=== PATIENT | female | born 1960 | race Caucasian/White ===

== ENCOUNTER 2019-04-02 02:36 | Inpatient (IN) | payer OTHER ==
--- NOTE | 2019-04-02 02:38 | PDOC ---
History of Present Illness - General Chief Complaint: Pain, Acute Stated Complaint: ABD PAIN Time Seen by Provider: 04/02/19 02:37 - History of Present Illness Initial Comments: 04/02/19 02:58 This 58-year-old woman with a history of SVT (no episodes in greater than 1 year ) presents with a few hour history of abdominal pain. Patient was awakened from sleep with pain in the epigastric area, sharp and cramping in nature radiating to bilateral flanks and to both lower quadrants. Pain associated with nausea; patient had 3 episodes of vomiting prior to presentation (no blood/ coffee grounds/bile). She had sensation of tenesmus but no gas/BM passed at home. No dysuria/hematuria/urinary frequency or urgency. No history of PUD/ gallstones/renal stone. She has history of hysterectomy but no other surgical procedures. No fever/chills. After vomiting at home, nausea has subsided. Last meal early last evening; last bowel movement sometime in the last 24 hours and was normal. No known drug allergies Medications as noted below (patient took extra metoprolol this evening because of tension headache and elevated BP(170/90) on home monitor) PMH as noted above; patient has no history of hypertension, metoprolol prescribed for SVT control PSH: hysterectomy Non smoker Alcohol use 2-3 /week (few beers); no other recreational drug use Past History - Past Medical History Allergies/Adverse Reactions: Allergies Allergy/AdvReac Type Severity Reaction Status Date / Time No Known Drug Allergies Allergy Verified 04/02/19 16:13 Home Medications: Ambulatory Orders Multivitamin [Multivitamins] 1 each PO DAILY tablet 08/10/13 Estradiol [Estradiol Transdermal Patch] 1 each TD WEEKLY 05/02/15 Metoprolol Succinate 25 mg PO DAILY 04/02/19 Progesterone, Micronized [Progesterone] 25 mg PO DAILY 04/02/19 Review of Systems - Review of Systems Able to Perform ROS?: Yes Comments:: 12 point review of systems is negative except for what is noted in the history of present illness *Physical Exam - Physical Exam Comments: GENERAL: Adult female, alert and oriented x3, in mild distress secondary to abdominal pain HEAD: Normal with no signs of trauma. EYES: PERRLA, EOMI, sclera anicteric, conjunctiva clear. ENT: Ears normal, nares patent, oropharynx clear without exudates. Dry mucous membranes. NECK: Normal range of motion, supple without lymphadenopathy, JVD, or masses. LUNGS: Breath sounds equal, clear to auscultation bilaterally. No wheezes, and no crackles. HEART:Regular rate and rhythm, normal S1 and S2 without murmur, rub or gallop. ABDOMEN:.normal bowel sounds; extensive voluntary guarding; mild generalized tenderness, no rebound or masses EXTREMITIES: Normal range of motion, no edema. No clubbing or cyanosis. No erythema, or tenderness. NEUROLOGICAL: Cranial nerves II through XII grossly intact. Normal speech. No focal neurological deficits. Twelve-lead electrocardiogram is performed interpreted by me: Normal sinus rhythm at 62 bpm; axis, intervals and waveforms are all normal. No evidence of acute ST or T wave abnormalities. No evidence of acute cardiac arrhythmia ED Treatment Course - LABORATORY CBC & Chemistry Diagram: 04/02/19 03:05 04/02/19 03:05 Medical Decision Making - Medical Decision Making 04/02/19 03:59 Abdominal/pelvic CT with IV and oral contrast plan to evaluate etiology of progressive abdominal pain. Patient given Toradol 30 mg IV and 1 L normal saline IV hydration started. Patient vomited oral contrast (after drinking most of it). 04/02/19 05:56 CT of abdomen and pelvis with intravenous contrast interpreted by Imaging demolition worker :revealed multiple dilated loops of small bowel with 2 transition points at midabdominal and left lower quadrant of the abdomen. There is perienteric fat stranding with edema and mesenteric vascular congestion. Findings suggest a high-grade, closed-loop small bowel obstruction. No free intraperitoneal air or mass is seen. Results discussed with the patient and her . There is no general surgeon that they have seen in the past. Case discussed with general surgeon on-call, Dr. Truong. Dr. Truong requests that patient be admitted to [facility], where OR is available today. The patient and her are informed of plan and they agree to it. [facility] hospitalist service will be contacted NG tube inserted 04/02/19 06:27 SHERIE Drake, [facility] hospitalist service contacted and case discussed with him. Patient will be admitted to [facility] bed, Dr. Buchanan admitting 04/02/19 07:28 Portable chest x-ray performed: No evidence of infiltrate/effusion masses or other acute abnormality. Cardiac monitoring advised device seen superimposed on cardiac silhouette. Discharge - Discharge Information Problems reviewed: Yes Clinical Impression/Diagnosis: Small bowel obstruction Condition: Guarded - Admission Yes - Follow up/Referral - Patient Discharge Instructions - Post Discharge Activity
[2019-04-02 02:47] VITALS: BMI 24.3
[2019-04-02] MEDS ORDERED: KETOROLAC TROMETHAMINE 30 MG/1 ML VIAL IVPUSH ONE (02:57)
[2019-04-02] MEDS ORDERED: SODIUM CHLORIDE 1,000 ML IV STA ×2 (02:57→06:19)
[2019-04-02] MEDS ORDERED: KETOROLAC TROMETHAMINE 30 MG/1 ML VIAL ONE (02:59)
[2019-04-02 03:42] LABS: BASO % 0.6 % (0-2.0); EOS % 1.7 % (0-4.5); HEMATOCRIT 42.5 % (32.4-45.2); HEMOGLOBIN 14.4 GM/dL (10.7-15.3); LYMPH % 26.7 % (8-40); MCH 32.7 pg (25.7-33.7); MCHC 33.9 g/dl (32.0-36.0); MEAN CELL VOLUME 96.5 fl (80-96); MONO % 6.8 % (3.8-10.2); NEUT % 64.2 % (42.8-82.8); PLATELET COUNT 452 K/MM3 (134-434); RBC 4.41 M/mm3 (3.60-5.2); RDW 12.6 % (11.6-15.6); WHITE BLOOD COUNT 10.3 K/mm3 (4.0-10.0)
[2019-04-02] MEDS ORDERED: morphine CARPU-JECT 2 MG/1 ML DISP.SYRIN IVPUSH ONE ×2 (03:50→05:06)
[2019-04-02 03:54] LABS: INR 1.01 (0.83-1.09); PROTHROMBIN TIME (PATIENT) 11.9 SEC (9.7-13.0)
[2019-04-02] MEDS ORDERED: morphine SULFATE 4 MG/ML VIAL ONE (03:57)
[2019-04-02 04:04] LABS: ALBUMIN 4.1 g/dl (3.4-5.0); BILIRUBIN,TOTAL 0.5 mg/dL (0.2-1); CALCIUM 9.5 mg/dL (8.5-10.1); CREATININE 0.9 mg/dL (0.55-1.3); POTASSIUM 4.1 mmol/L (3.5-5.1); TOT PROT 6.9 g/dl (6.4-8.2)
[2019-04-02] MEDS ORDERED: ONDANSETRON 4 MG/2 ML VIAL IVPUSH ONE (05:05)
[2019-04-02] MEDS ORDERED: ONDANSETRON 4 MG/2 ML VIAL ONE (05:09)
[2019-04-02] MEDS ORDERED: HYDROmorphone HCL CARPU-JECT 2 MG/1 ML DISP.SYRIN IVPUSH ONE (06:50)
[2019-04-02] MEDS ORDERED: HYDROmorphone HCl 2 MG/ML VIAL ONE (06:55)
[2019-04-02 08:38] LABS: URINE APPEARANCE CLEAR; URINE BILIRUBIN NEGATIVE (NEGATIVE); URINE COLOR YELLOW; URINE GLUCOSE (UA) NEGATIVE (NEGATIVE); URINE KETONE NEGATIVE (NEGATIVE)
[2019-04-02 08:39] LABS: URINE LEUK ESTERASE NEGATIVE (NEGATIVE); URINE NITRITE NEGATIVE (NEGATIVE); URINE PROTEIN NEGATIVE (NEGATIVE); URINE UROBILINOGEN 0.2 (0.2-1.0)
[2019-04-02 08:44] LABS: URINE RBC 0-2 /hpf (0-4)
[2019-04-02] MEDS: LACTATED RINGERS SOLUTION 1,000 ML IV SCH (11:57)
--- NOTE | 2019-04-02 12:01 | HP ---
Admitting History and Physical - Admission Chief Complaint: Abdominal pain and vomiting History of Present Illness: 58F with history of anxiety and SVT on metoprolol presents to the hospital at [place] after waking up in the middle of the night with abdominal pain. The patient states she felt nauseous and ended up vomiting the night before's dinner. She had a CT scan which showed SBO with 2 transition points. Patient was seen by surgery and per patient and RN (note pending) surgery would like to medically manage with an NG tube for now. She denies fever chills chest pain or SOB. She denies lightheadedness dizziness diarrhea or constipation. Her last BM was 2 days ago and last flatus was yesterday morning. She has a past surgical history of a hysterectomy. History Source: Patient, Medical Record Limitations to Obtaining History: No Limitations - Past Medical History Cardiovascular: Yes: Other (SVT) ...: No Psych: Yes: Anxiety - Past Surgical History Past Surgical History: Yes: Hysterectomy (Robot assisted laparoscopic) Additional Past Surgical History: Multiple D&Cs for uterine bleeding - Smoking History Smoking history: Never smoked Home Medications - Allergies Allergies/Adverse Reactions: Allergies Allergy/AdvReac Type Severity Reaction Status Date / Time milk Allergy Intolerance Verified 04/02/19 10:47 - Home Medications Home Medications: Ambulatory Orders Multivitamin [Multivitamins] 1 each PO DAILY tablet 08/10/13 Estradiol [Estradiol Transdermal Patch] 1 each TD WEEKLY 05/02/15 Metoprolol Succinate 25 mg PO DAILY 04/02/19 Progesterone, Micronized [Progesterone] 25 mg PO DAILY 04/02/19 Family Medical History Family History: Denies Review of Systems - Review of Systems Constitutional: reports: Loss of Appetite Eyes: reports: No Symptoms HENT: reports: No Symptoms Neck: reports: No Symptoms Cardiovascular: reports: No Symptoms Respiratory: reports: No Symptoms Gastrointestinal: reports: Abdominal Pain, Nausea, Vomiting, Other (no BM no flatus) Genitourinary: reports: No Symptoms Musculoskeletal: reports: No Symptoms Neurological: reports: No Symptoms Endocrine: reports: No Symptoms Hematology/Lymphatic: reports: No Symptoms Psychiatric: reports: No Symptoms Physical Examination Vital Signs: Vital Signs Temperature 98.4 F 04/02/19 11:14 Pulse Rate 86 04/02/19 11:14 Respiratory Rate 17 04/02/19 11:14 Blood Pressure 166/92 04/02/19 11:14 O2 Sat by Pulse Oximetry (%) 99 04/02/19 11:14 Constitutional: Yes: Well Nourished, No Distress, Calm Eyes: Yes: Conjunctiva Clear HENT: Yes: Atraumatic, Normocephalic Neck: Yes: Supple, Trachea Midline Cardiovascular: Yes: Regular Rate and Rhythm, S1, S2. No: Murmur Respiratory: Yes: WNL, Regular, CTA Bilaterally Gastrointestinal: Yes: Soft, Tenderness (bilateral lower quadrants), Other (no bowel sounds appreciated after 3 minutes of listening for bowel sounds) Musculoskeletal: Yes: WNL Extremities: Yes: WNL Edema: No Neurological: Yes: Alert, Oriented Psychiatric: Yes: Alert, Oriented Labs: CBC, BMP 04/02/19 03:05 04/02/19 03:05 Imaging - Results X-ray: Report Reviewed, Image Reviewed Cat Scan: Report Reviewed, Image Reviewed Assessment/Plan This is a 58F with history of anxiety and SVT who presents with nausea and vomiting in the setting of abdominal pain found to have small bowel obstruction. Small bowel obstruction Admit to inpatient services NPO IVF Surgery consult-medical management for now pain control monitor for bowel function history of SVT denies palpitations [id number] IVPB q6h with hold parameters Patient discharged by service crew supervisor for not having any episodes for 1 year Anxiety: Takes ativan 0.5mg po daily PRN states a 30 day supply lasts her about 90 days usually will start 0.5mg IV PRN FEN: LR @ 100ml/hr no electrolyte issues-trend lytes while patient is NPO NPO for now PPx: DVT PPx with HSQ GI PPx with IV protonix OOB to chair and ambulate as tolerated Visit type - Emergency Visit Emergency Visit: Yes ED Registration Date: 04/02/19 Care time: The patient presented to the Emergency Department on the above date and was hospitalized for further evaluation of their emergent condition. - New Patient This patient is new to me today: Yes Date on this admission: 04/02/19 - Critical Care Critical Care patient: No
[2019-04-02] MEDS ORDERED: LORazepam 2 MG/ML SDV VIAL IVPUSH PRN (12:03)
[2019-04-02] MEDS: METOPROLOL TARTRATE 5 MG/5 ML VIAL IVPB SCH ×3 (12:06→22:48)
[2019-04-02] MEDS: PANTOPRAZOLE SODIUM 40 MG VIAL IVPUSH SCH (12:06)
[2019-04-02] MEDS: MORPHINE SULFATE 2 MG/ML VIAL IVPUSH PRN ×2 (13:02→17:48)
[2019-04-02] MEDS ORDERED: BENZOCAINE/MENTH/CETYLPYRD CL 1 EACH LOZENGE MM PRN (15:34)
[2019-04-02] MEDS: HEPARIN NA (PORCINE) 5,000 UNITS/ML 1ML VIAL SQ SCH ×2 (15:55→22:25)
--- NOTE | 2019-04-02 20:13 | EKG ---
Test Reason : Blood Pressure : / mmHG Vent. Rate : 062 BPM Atrial Rate : 062 BPM P-R Int : 156 ms QRS Dur : 090 ms QT Int : 422 ms P-R-T Axes : 048 -01 -19 degrees QTc Int : 428 ms NORMAL SINUS RHYTHM NONSPECIFIC ST ABNORMALITY ABNORMAL ECG NO PREVIOUS ECGS AVAILABLE Confirmed by MD JANAE, DONNIE ([id number]) on 04/02/2019 8:12:56 PM Referred By: MD MENDEZ Confirmed By:DONNIE CARDOSO MD
[2019-04-02] MEDS: morphine SULFATE 4 MG/ML VIAL IVPUSH PRN (22:24)
[2019-04-03] MEDS: morphine SULFATE 4 MG/ML VIAL IVPUSH PRN (03:25)
[2019-04-03] MEDS: LACTATED RINGERS SOLUTION 1,000 ML IV SCH ×2 (03:30→15:23)
[2019-04-03] MEDS: HEPARIN NA (PORCINE) 5,000 UNITS/ML 1ML VIAL SQ SCH ×3 (05:41→22:38)
[2019-04-03] MEDS: METOPROLOL TARTRATE 5 MG/5 ML VIAL IVPB SCH ×4 (05:50→22:38)
[2019-04-03 07:35] LABS: BASO % 0.3 % (0-2.0); EOS % 0.3 % (0-4.5); HEMATOCRIT 39.9 % (32.4-45.2); HEMOGLOBIN 13.8 GM/dL (10.7-15.3); LYMPH % 14.8 % (8-40); MCH 33.3 pg (25.7-33.7); MCHC 34.5 g/dl (32.0-36.0); MEAN CELL VOLUME 96.4 fl (80-96); MEAN PLT VOLUME 6.9 fl (7.5-11.1); MONO % 5.9 % (3.8-10.2); NEUT % 78.7 % (42.8-82.8); PLATELET COUNT 461 K/MM3 (134-434); RBC 4.14 M/mm3 (3.60-5.2); RDW 12.9 % (11.6-15.6); WHITE BLOOD COUNT 11.8 K/mm3 (4.0-10.0)
[2019-04-03 07:52] LABS: ALBUMIN 3.7 g/dl (3.4-5.0); BILIRUBIN,TOTAL 0.8 mg/dL (0.2-1); BLOOD UREA NITROGEN 11.3 mg/dL (7-18); CALCIUM 9.1 mg/dL (8.5-10.1); CREATININE 0.9 mg/dL (0.55-1.3); MAGNESIUM 2.1 mg/dL (1.8-2.4); PHOSPHOROUS 3.4 mg/dL (2.5-4.9); TOT PROT 6.3 g/dl (6.4-8.2)
[2019-04-03] MEDS: PANTOPRAZOLE SODIUM 40 MG VIAL IVPUSH SCH (10:28)
[2019-04-03] MEDS: MORPHINE SULFATE 2 MG/ML VIAL IVPUSH PRN ×2 (10:31→22:47)
[2019-04-03] MEDS: ONDANSETRON 4 MG/2 ML VIAL IVPUSH PRN ×2 (10:47→22:46)
--- NOTE | 2019-04-03 10:51 | PN ---
Physical Exam: SUBJECTIVE: Patient seen and examined. She reports pain relief with increased dose of morphine. Minimum pain present in lower abdomen with movement only. She denies fever, chills, chest pain, shortness of breath, n/v. No flatus. OBJECTIVE: Vital Signs Period Temp Pulse Resp BP Sys/Castillo Pulse Ox Last 24 Hr 98 F-98.4 F 68-90 17-18 139-166/67-100 99-99 GENERAL: The patient is awake, alert, and fully oriented, in no acute distress. HEAD: Normal with no signs of trauma. EYES: PERRL, extraocular movements intact ENT: Ears normal, nares patent, moist mucous membranes. NECK: Trachea midline, full range of motion LUNGS: Breath sounds equal, clear to auscultation bilaterally HEART: Regular rate and rhythm, no murmur ABDOMEN: Soft, non-distended, tender to palpation in lower quadrants, normoactive bowel sounds in all 4 quadrants EXTREMITIES: Pulses, warm, well-perfused, no edema. NEUROLOGICAL: Cranial nerves II through XII grossly intact. Normal speech. PSYCH: Normal mood, normal affect. SKIN: Warm, dry, normal turgor Laboratory Results - last 24 hr 04/03/19 04/03/19 06:30 06:30 WBC 11.8 H RBC 4.14 Hgb 13.8 Hct 39.9 MCV 96.4 H MCH 33.3 MCHC 34.5 RDW 12.9 Plt Count 461 H MPV 6.9 L Absolute Neuts (auto) 9.3 H Neutrophils % 78.7 D Lymphocytes % 14.8 D Monocytes % 5.9 Eosinophils % 0.3 D Basophils % 0.3 Nucleated RBC % 0 Sodium 140 Potassium 4.0 Chloride 103 Carbon Dioxide 28 Anion Gap 9 BUN 11.3 Creatinine 0.9 Est GFR (CKD-EPI)AfAm 81.11 Est GFR (CKD-EPI)NonAf 69.99 Random Glucose 102 Calcium 9.1 Phosphorus 3.4 Magnesium 2.1 Total Bilirubin 0.8 AST 16 ALT 22 Alkaline Phosphatase 64 Total Protein 6.3 L Albumin 3.7 Active Medications Generic Name Dose Route Start Last Admin Trade Name Freq PRN Reason Stop Dose Admin Benzocaine/Menthol 1 each 04/02/19 15:34 Cepacol Lozenge - MM PRN PRN SORE THROAT Heparin Sodium (Porcine) 5,000 unit 04/02/19 14:00 04/03/19 05:41 Heparin - SQ 5,000 unit TID LULU Administration Lactated Ringer's 1,000 mls @ 100 mls/hr 04/02/19 11:30 04/03/19 03:30 Lactated Ringers Solution IV 100 mls/hr ASDIR LULU Administration Lorazepam 0.5 mg 04/02/19 12:03 Ativan Injection - IVPUSH BID PRN ANXIETY Metoprolol Tartrate 5 mg 04/02/19 11:30 04/03/19 05:50 Lopressor Injection - IVPB 5 mg Q6H LULU Administration Morphine Sulfate 2 mg 04/02/19 11:19 04/03/19 10:31 Morphine Sulfate IVPUSH 2 mg Q4H PRN Administration PAIN LEVEL 4 - 6 Morphine Sulfate 4 mg 04/02/19 11:19 04/03/19 03:25 Morphine Sulfate IVPUSH 4 mg Q4H PRN Administration PAIN LEVEL 6-10 Ondansetron HCl 4 mg 04/02/19 11:25 Zofran Injection IVPUSH Q6H PRN NAUSEA Pantoprazole Sodium 40 mg 04/02/19 11:30 04/03/19 10:28 Protonix Iv IVPUSH 40 mg DAILY LULU Administration ASSESSMENT/PLAN: Ms. White is a 58y/o female with anxiety and SVT who presents with sudden onset abdominal pain. Pt was found to have SBO. Hx of hysterectomy 4 years ago. #SBO CT showed lower abdominal/pelvic SBO. Mild leukocytosis. Afebrile and hemodynamically stable. NG tube placed yesterday. No flatus yet but pt has + bowel sounds in all quadrants. -continue conservative therapy of NG tube low suction -surgery following- can monitor but will need exploration if not resolved in 5 days. -NPO -LR 100mL/hr -morphine PRN -Zofran PRN -cepacol for throat pain #hepatic lesions 2 1.0cm low-attenuation lesions, possibly cysts present on CT. Normal liver enzymes. -f/u out pt #SVT Well-controlled -metoprolol 5mg Q6H IVPB #anxiety Well-controlled -Ativan PRN DVT Ppx heparin GI Ppx pantoprazole FEN LR 100mL/hr monitor labs NPO Dispo medical management for resolution of SBO Visit type - Emergency Visit Emergency Visit: Yes ED Registration Date: 04/02/19 Care time: The patient presented to the Emergency Department on the above date and was hospitalized for further evaluation of their emergent condition. - New Patient This patient is new to me today: Yes Date on this admission: 04/03/19 - Critical Care Critical Care patient: No - Discharge Referral Referred to [facility] Med P.C.: No ATTENDING PHYSICIAN STATEMENT I saw and evaluated the patient. I reviewed the resident's note and discussed the case with the resident. I agree with the resident's findings and plan as documented. SUBJECTIVE: OBJECTIVE: ASSESSMENT AND PLAN:
--- NOTE | 2019-04-03 11:05 | PN ---
Teaching Attending Note Name of Resident: Rhonda Mitchell ATTENDING PHYSICIAN STATEMENT I saw and evaluated the patient. I reviewed the resident's note and discussed the case with the resident. I agree with the resident's findings and plan as documented. SUBJECTIVE: Patient seen and examined at bedside patient keeps taking NG tube off suction because the NG tube is hurting her throat. I explained to the patient the NG tube is not doing its job when it is off suction. Been off suction since last night. Patient more distended today and vomited. NG tube not on suction when she vomited. Patient becoming very difficult to staff and nursing and stated to me "you done know what it feels like to have one of these in. Maybe you should try putting one in yourself to see how it feels". OBJECTIVE: Vitals reviewed NAD AAOx3 RRR S1 S2 CTAB soft distended non tender + bowel sounds today ASSESSMENT AND PLAN: This is a 58F with history of anxiety and SVT who presents with nausea and vomiting in the setting of abdominal pain found to have small bowel obstruction. Small bowel obstruction NPO IVF Surgery consult-medical management for now pain control monitor for bowel function keep NG tube on low continuous suction history of SVT denies palpitations metoprolol 5mg IVPB q6h with hold parameters Patient discharged by video production specialist for not having any episodes for 1 year Anxiety: Takes ativan 0.5mg po daily PRN states a 30 day supply lasts her about 90 days usually will start 0.5mg IV PRN FEN: LR @ 100ml/hr no electrolyte issues-trend lytes while patient is NPO NPO for now PPx: DVT PPx with HSQ GI PPx with IV protonix OOB to chair and ambulate as tolerated
--- NOTE | 2019-04-03 12:56 | CONS ---
DATE OF CONSULTATION: 04/02/2019 REASON FOR CONSULTATION: Small-bowel obstruction. The patient was seen and examined earlier today. The consult is being dictated now. BRIEF HISTORY: This is a 58-year-old female with history of supraventricular tachycardia, for which she takes metoprolol, presented with lower abdominal pain and nausea. She went to [facility] emergency room. She had a previous history of a robot-assisted hysterectomy. There, she had a CAT scan of her abdomen and pelvis, which suggested a possible closed loop obstruction. At 5:30 in the morning, I requested that she be transferred to [facility], where operating room capability existed. The patient was transferred over by 10 o'clock in the morning and she was seen and examined at that time. She had a nasogastric tube placed and she was admitted for obstruction. She had minimal output from the NG tube. At the time I had seen her, her colicky abdominal pain had mostly resolved. She denies flatus, denies bowel movement. Her social history is negative for alcohol, negative for tobacco. Home medications include estradiol, metoprolol, progesterone, and multivitamins. I believe she reports having endometriosis as well. REVIEW OF SYSTEMS: General: Denies fatigue or malaise. Cardiac: Denies chest pain or palpitations. Respiratory: No shortness of breath or wheeze. Gastrointestinal: As in HPI. Denies nausea, denies vomiting. Denies blood in her stool. Genitourinary: Denies dysuria. Musculoskeletal: Denies joint pain. Psychiatric: Denies anxiety, depression, or hearing voices. PHYSICAL EXAMINATION: General: This is a well-developed, well-nourished 58-year-old female in no distress. Vital Signs: She is afebrile. HEENT: Her head is normocephalic. Sclerae are anicteric. Neck: Supple. Chest: Clear. Abdomen: Soft. She has minimal tenderness in the suprapubic region. She has well-healed laparoscopic scars. She has no rebound, no guarding. Extremities: Her extremities have no edema. LABORATORY DATA: White blood cell count is 10.3. Her chemistries are unremarkable. Her urinalysis is unremarkable. Her imaging is as in HPI. In addition, she had an abdominal x-ray at my request, which was done 5 hours after her CAT scan. That x-ray did not show dilated loops of bowel; however, it was an inconclusive study. There was also no contrast noted in the colon. ASSESSMENT: This is a 58-year-old female with previous hysterectomy, likely endometriosis, presented with abdominal pain, nausea, vomiting, with a CAT scan suggestive of possible closed loop obstruction. She had no ascites. Her white blood cell count was unremarkable and her pain symptoms have resolved. She was offered exploratory surgery and declines. She wishes to continue with conservative management, which is reasonable. I will continue nasogastric tube decompression. Will continue n.p.o. If she has minimal output and continues to improve, it will likely be successfully managed medically. At this point, there is no evidence of bowel compromise and I believe it is safe to continue with conservative management. DO SUDHEER [id number]
--- NOTE | 2019-04-03 14:03 | PN ---
Progress Note (short form) - Note Progress Note: surgery pt seen and examined. feels well. no flatus or bm. minimal ngt output recorded. afebrile abd- soft, moderate distension. mild lower abd tenderness Plan- cont npo and ngt. if conservative therapy fails will need exploration. would not wait past Thursday.
[2019-04-04] MEDS: METOPROLOL TARTRATE 5 MG/5 ML VIAL IVPB SCH ×4 (05:31→23:32)
[2019-04-04] MEDS: HEPARIN NA (PORCINE) 5,000 UNITS/ML 1ML VIAL SQ SCH ×3 (05:32→23:33)
[2019-04-04 08:51] LABS: BLOOD UREA NITROGEN 15.2 mg/dL (7-18); CALCIUM 8.5 mg/dL (8.5-10.1); CREATININE 0.8 mg/dL (0.55-1.3); POTASSIUM 3.5 mmol/L (3.5-5.1)
[2019-04-04 08:57] LABS: BASO % 0.1 % (0-2.0); EOS % 0.3 % (0-4.5); HEMATOCRIT 38.6 % (32.4-45.2); HEMOGLOBIN 13.5 GM/dL (10.7-15.3); LYMPH % 9.5 % (8-40); MCH 33.4 pg (25.7-33.7); MCHC 34.8 g/dl (32.0-36.0); MEAN CELL VOLUME 95.7 fl (80-96); MEAN PLT VOLUME 7.1 fl (7.5-11.1); MONO % 6.8 % (3.8-10.2); NEUT % 83.3 % (42.8-82.8); PLATELET COUNT 392 K/MM3 (134-434); RBC 4.04 M/mm3 (3.60-5.2); RDW 12.7 % (11.6-15.6); WHITE BLOOD COUNT 12.3 K/mm3 (4.0-10.0)
[2019-04-04] MEDS: PANTOPRAZOLE SODIUM 40 MG VIAL IVPUSH SCH (10:45)
--- NOTE | 2019-04-04 12:05 | PN ---
Progress Note (short form) - Note Progress Note: Pt states that her abdominal pain has improved. She used pain medicaiton x2 since yesterday in a 24 hour period. Passed flatus this am. Vital Signs Period Temp Pulse Resp BP Sys/Castillo Pulse Ox Last 24 Hr 98 F-98.8 F 20-94 18-18 120-159/60-88 95-96 NGT: bilious 500 yesterday and 200ml overnight/ngt secured at 55 GEN: appears comfortable ABD: soft, non-distended, non-tender CBC, BMP 04/04/19 06:55 04/04/19 06:55 A/P: 58 yo female with a hysterectomy, now with SBO Pt now with small amount of flatus, f/u repeat abd xray reveals air in the colon/contrast n the cecum. D/w DR. Truong and recommend npo/ngt decompression. D/w Dr. Truong and recommend to continue conservative management with ngt decompression/npt and IV hydration. She appears to be clinically improving but recommend to progress slowly, awaiting for more bowel function. XRAY in the am, ordered.
--- NOTE | 2019-04-04 14:59 | PN ---
Physical Exam: SUBJECTIVE: Patient seen and examined. No acute events overnight. She reports mild improvement in abd pain with current dose of morphine. Pt notes flatus x2 this morning. Denies bowel movement. No fevers, nausea, vomiting. OBJECTIVE: Vital Signs Period Temp Pulse Resp BP Sys/Castillo Pulse Ox Last 24 Hr 98 F-98.8 F 20-94 18-18 120-159/60-88 95-96 GENERAL: The patient is awake, alert, and fully oriented, in no acute distress. HEAD: Normal with no signs of trauma. EYES: PERRL, extraocular movements intact, sclera anicteric, conjunctiva clear. No ptosis. ENT: Ears normal, nares patent, oropharynx clear without exudates, moist mucous membranes. NECK: Trachea midline, full range of motion, supple. LUNGS: Breath sounds equal, clear to auscultation bilaterally, no wheezes, no crackles, no accessory muscle use. HEART: Regular rate and rhythm, S1, S2 without murmur, rub or gallop. ABDOMEN: Soft, tenderness in lower abd (improving from yesterday), mildly distended, hypoactive bowel sounds, no guarding, no rebound, no hepatosplenomegaly, no masses. EXTREMITIES: 2+ pulses, warm, well-perfused, no edema. NEUROLOGICAL: Cranial nerves II through XII grossly intact. Normal speech, gait not observed. PSYCH: Normal mood, normal affect. SKIN: Warm, dry, normal turgor, no rashes or lesions noted Laboratory Results - last 24 hr 04/04/19 04/04/19 06:55 06:55 WBC 12.3 H RBC 4.04 Hgb 13.5 Hct 38.6 MCV 95.7 MCH 33.4 MCHC 34.8 RDW 12.7 Plt Count 392 MPV 7.1 L Absolute Neuts (auto) 10.3 H Neutrophils % 83.3 H Lymphocytes % 9.5 D Monocytes % 6.8 Eosinophils % 0.3 Basophils % 0.1 Nucleated RBC % 0 Sodium 140 Potassium 3.5 Chloride 103 Carbon Dioxide 28 Anion Gap 10 BUN 15.2 Creatinine 0.8 Est GFR (CKD-EPI)AfAm 93.53 Est GFR (CKD-EPI)NonAf 80.70 Random Glucose 81 Calcium 8.5 Active Medications Benzocaine/Menthol (Cepacol Lozenge -) 1 each MM PRN PRN PRN Reason: SORE THROAT Heparin Sodium (Porcine) (Heparin -) 5,000 unit SQ TID [facility] Last Admin: 04/04/19 05:32 Dose: 5,000 unit Lactated Ringer's (Lactated Ringers Solution) 1,000 mls @ 100 mls/hr IV ASDIR [facility] Last Admin: 04/03/19 15:23 Dose: 100 mls/hr Lorazepam (Ativan Injection -) 0.5 mg IVPUSH BID PRN PRN Reason: ANXIETY Metoprolol Tartrate (Lopressor Injection -) 5 mg IVPB Q6H [facility] Last Admin: 04/04/19 10:45 Dose: 5 mg Morphine Sulfate (Morphine Sulfate) 2 mg IVPUSH Q4H PRN PRN Reason: PAIN LEVEL 4 - 6 Last Admin: 04/03/19 22:47 Dose: 2 mg Morphine Sulfate (Morphine Sulfate) 4 mg IVPUSH Q4H PRN PRN Reason: PAIN LEVEL 6-10 Last Admin: 04/03/19 03:25 Dose: 4 mg Ondansetron HCl (Zofran Injection) 4 mg IVPUSH Q6H PRN PRN Reason: NAUSEA Last Admin: 04/03/19 22:46 Dose: 4 mg Pantoprazole Sodium (Protonix Iv) 40 mg IVPUSH DAILY [facility] Last Admin: 04/04/19 10:45 Dose: 40 mg ASSESSMENT/PLAN: Ms. White is a 58y/o female with anxiety and SVT who presents with sudden onset abdominal pain. Pt was found to have SBO. Hx of hysterectomy 4 years ago. #SBO likely 2/2 adhesions CTAP (04/02): SBO in lower abdominal pelvis Mild leukocytosis. Afebrile and hemodynamically stable. NG tube placed on 04/03, 1100ml on suction Flatus today, no bowel movements, hypoactive bowel sounds. Mild distension GI/surg on board. Cont conservative therapy. Will need exploration if not resolved in 5 days (Thursday) Keep NPO LR 100 ml/hr Morphine 4mg q4h prn Zofran 40mg q6h IV prn Cepacol prn for throat discomfort #Hepatic lesions CTAP: 2x 1.0 low-attenuation lesions, possibly cysts. Normal liver enzymes Recommend f/u as outpt #SVT, chronic Pt denies palpitations or symptoms Metoprolol 5mg Q6H IV with hold parameters Well controlled, pt was discharged by prototype model maker for not having any episodes for 1 year #Anxiety Takes ativan 0.5mg po daily prn at home. Reports that a 30-day supply lasts her about 90 days. Will cont 0.5mg IV prn while NPO #FEN LR @ 100ML/HR Monitor electrolytes NPO for now #DVT ppx Heparin #GI Ppx Pantoprazole 40mg IV daily #Dispo Medical management for resolution of SBO Visit type - Emergency Visit Emergency Visit: No - New Patient This patient is new to me today: Yes Date on this admission: 04/04/19 - Critical Care Critical Care patient: No ATTENDING PHYSICIAN STATEMENT I saw and evaluated the patient. I reviewed the resident's note and discussed the case with the resident. I agree with the resident's findings and plan as documented. SUBJECTIVE: OBJECTIVE: ASSESSMENT AND PLAN:
[2019-04-04] MEDS ORDERED: LORazepam 0.5 MG TABLET PO PRN (15:02)
[2019-04-04] MEDS ORDERED: LORazepam 2 MG/ML SDV VIAL IVPUSH PRN (15:04)
[2019-04-04] MEDS: LACTATED RINGERS SOLUTION 1,000 ML IV SCH (16:04)
--- NOTE | 2019-04-04 16:36 | PN ---
Teaching Attending Note Name of Resident: Jeanne Ferris ATTENDING PHYSICIAN STATEMENT I saw and evaluated the patient. I reviewed the resident's note and discussed the case with the resident. I agree with the resident's findings and plan as documented. SUBJECTIVE: Abdominal pain is improving. (+) flatus. No bowel movement. OBJECTIVE: Vital Signs Period Temp Pulse Resp BP Sys/Castillo Pulse Ox Last 24 Hr 98 F-98.8 F 20-94 18-18 120-159/60-88 95-96 HEART: S1S2, RRR LUNGS: Clear ABDOMEN: Soft, (+) mild tenderness in lower abdomen, non-distended, hypoactive BS EXTREMITIES: No edema Laboratory Results - last 24 hr 04/04/19 04/04/19 06:55 06:55 WBC 12.3 H RBC 4.04 Hgb 13.5 Hct 38.6 MCV 95.7 MCH 33.4 MCHC 34.8 RDW 12.7 Plt Count 392 MPV 7.1 L Absolute Neuts (auto) 10.3 H Neutrophils % 83.3 H Lymphocytes % 9.5 D Monocytes % 6.8 Eosinophils % 0.3 Basophils % 0.1 Nucleated RBC % 0 Sodium 140 Potassium 3.5 Chloride 103 Carbon Dioxide 28 Anion Gap 10 BUN 15.2 Creatinine 0.8 Est GFR (CKD-EPI)AfAm 93.53 Est GFR (CKD-EPI)NonAf 80.70 Random Glucose 81 Calcium 8.5 Current Medications Generic Name Dose Route Start Last Admin Trade Name Freq PRN Reason Stop Dose Admin Benzocaine/Menthol 1 each 04/02/19 15:34 Cepacol Lozenge - MM PRN PRN SORE THROAT Heparin Sodium (Porcine) 5,000 unit 04/02/19 14:00 04/04/19 16:05 Heparin - SQ 5,000 unit TID [facility] Administration Lactated Ringer's 1,000 mls @ 100 mls/hr 04/02/19 11:30 04/04/19 16:04 Lactated Ringers Solution IV Not Given ASDIR [facility] Lorazepam 0.5 mg 04/04/19 15:04 Ativan Injection - IVPUSH DAILY PRN ANXIETY Metoprolol Tartrate 5 mg 04/02/19 11:30 04/04/19 10:45 Lopressor Injection - IVPB 5 mg Q6H [facility] Administration Morphine Sulfate 2 mg 04/02/19 11:19 04/03/19 22:47 Morphine Sulfate IVPUSH 2 mg Q4H PRN Administration PAIN LEVEL 4 - 6 Morphine Sulfate 4 mg 04/02/19 11:19 04/03/19 03:25 Morphine Sulfate IVPUSH 4 mg Q4H PRN Administration PAIN LEVEL 6-10 Ondansetron HCl 4 mg 04/02/19 11:25 04/03/19 22:46 Zofran Injection IVPUSH 4 mg Q6H PRN Administration NAUSEA Pantoprazole Sodium 40 mg 04/02/19 11:30 04/04/19 10:45 Protonix Iv IVPUSH 40 mg DAILY [facility] Administration ASSESSMENT AND PLAN: This is a 58 year old woman with a history of anxiety, SVT who presented to the ED with abdominal pain, nausea and vomiting. 1. Small bowel obstruction - Showing some clinical improvement - Maintain NG tube, NPO - Continue IV fluid - Morphine as needed for pain - Zofran as needed for nausea - Follow-up abdominal x-rays 2. History of SVT 3. Anxiety - Continue Ativan as needed 4. DVT prophylaxis - Heparin subq
[2019-04-04] MEDS: ONDANSETRON 4 MG/2 ML VIAL IVPUSH PRN (21:22)
[2019-04-04] MEDS: MORPHINE SULFATE 2 MG/ML VIAL IVPUSH PRN (23:33)
[2019-04-05] MEDS: HEPARIN NA (PORCINE) 5,000 UNITS/ML 1ML VIAL SQ SCH ×3 (05:45→21:33)
[2019-04-05] MEDS: METOPROLOL TARTRATE 5 MG/5 ML VIAL IVPB SCH ×4 (05:45→23:11)
[2019-04-05 08:55] LABS: HEMATOCRIT 39.7 % (32.4-45.2); HEMOGLOBIN 13.7 GM/dL (10.7-15.3); MCH 33.4 pg (25.7-33.7); MCHC 34.5 g/dl (32.0-36.0); MEAN CELL VOLUME 96.9 fl (80-96); MEAN PLT VOLUME 6.9 fl (7.5-11.1); PLATELET COUNT 434 K/MM3 (134-434); RDW 12.7 % (11.6-15.6); WHITE BLOOD COUNT 10.5 K/mm3 (4.0-10.0)
--- NOTE | 2019-04-05 09:15 | PN ---
Progress Note (short form) - Note Progress Note: Pt being followed for SBO seen and examined at bedside. Patient states she has no abdominal pain or nausea/vomiting. She continues to pass gas and would like to eat. She has been OOB and denies any CP, SOB, N/V/fever or chills. Vital Signs Temp 98.9 F 04/05/19 03:00 Pulse 93 H 04/05/19 05:45 Resp 18 04/05/19 03:00 BP 146/71 04/05/19 05:45 Pulse Ox 95 04/04/19 21:00 Intake & Output 04/04/19 04/04/19 04/05/19 11:59 23:59 11:59 Intake Total 800 0 Output Total 400 350 350 Balance 400 -350 -350 Intake: IV 800 Lactated Ringers Solution 800 1,000 ml @ 100 mls/hr IV ASDIR [facility] Rx#: [id number] Oral 0 0 Output: Gastric Drainage 400 350 350 Other: Voiding Method Toilet Toilet Bowel Movement No No CBC, BMP 04/05/19 08:05 NGT: bilious 350 overnight GEN: A&Ox3, NAD Resp: unlabored resp on RA ABD: soft, non-distended, non-tender. well healed scar at umbilicus. B/L LE compartments soft, supple and non-tender with +2 DP pulses. Problem List - Problems (1) Small bowel obstruction Assessment/Plan: A/P: 58 yo female s/p hysterectomy 4 years ago, now with SBO. She is passing flatus and appears to be clinically improving. Rpt Abdominal x-ray pending. -f/u abdominal film today -trend labs -d/c NGT -continue NPO/IVFs today -If patient tolerates having NGT out would consider starting full liquid diet tomorrow. -OOB as tolerated-encourage ambulation -Encourage IS Evaluation and plan discussed with Dr Cat Code(s): K56.609 - UNSP INTESTNL OBST, UNSP TO PARTIAL VERSUS COMPLETE OBST
[2019-04-05 09:21] LABS: BLOOD UREA NITROGEN 19.1 mg/dL (7-18); CALCIUM 9.1 mg/dL (8.5-10.1); CREATININE 0.7 mg/dL (0.55-1.3); POTASSIUM 3.5 mmol/L (3.5-5.1)
--- NOTE | 2019-04-05 09:28 | PN ---
Physical Exam: SUBJECTIVE: Patient seen and examined. Passed flatus once this am, one loose stool. Does not endorse increased pain, no nausea or vomiting. OBJECTIVE: Vital Signs Period Temp Pulse Resp BP Sys/Castillo Pulse Ox Last 24 Hr 98 F-99.8 F 20-94 18- 144-160/71-88 95 GENERAL: The patient is awake, alert, and fully oriented, in no acute distress. HEAD: Normal with no signs of trauma. EYES: PERRL, extraocular movements intact, sclera anicteric, conjunctiva clear. No ptosis. ENT: Ears normal, nares patent, oropharynx clear without exudates, moist mucous membranes. NECK: Trachea midline, full range of motion, supple. LUNGS: Breath sounds equal, clear to auscultation bilaterally, no wheezes, no crackles, no accessory muscle use. HEART: Regular rate and rhythm, S1, S2 without murmur, rub or gallop. ABDOMEN: Soft, nontender, nondistended, normoactive bowel sounds (increased from yesterday), no guarding, no rebound, no hepatosplenomegaly, no masses. EXTREMITIES: 2+ pulses, warm, well-perfused, no edema. NEUROLOGICAL: Cranial nerves II through XII grossly intact. Normal speech, gait not observed. PSYCH: Normal mood, normal affect. SKIN: Warm, dry, normal turgor, no rashes or lesions noted Laboratory Results - last 24 hr 04/05/19 04/05/19 08:05 08:05 WBC 10.5 H RBC 4.10 Hgb 13.7 Hct 39.7 MCV 96.9 H MCH 33.4 MCHC 34.5 RDW 12.7 Plt Count 434 MPV 6.9 L Sodium 141 Potassium 3.5 Chloride 103 Carbon Dioxide 28 Anion Gap 10 BUN 19.1 H Creatinine 0.7 Est GFR (CKD-EPI)AfAm 109.91 Est GFR (CKD-EPI)NonAf 94.84 Random Glucose 80 Calcium 9.1 Active Medications Benzocaine/Menthol (Cepacol Lozenge -) 1 each MM PRN PRN PRN Reason: SORE THROAT Heparin Sodium (Porcine) (Heparin -) 5,000 unit SQ TID [facility] Last Admin: 04/05/19 05:45 Dose: 5,000 unit Lactated Ringer's (Lactated Ringers Solution) 1,000 mls @ 100 mls/hr IV ASDIR [facility] Last Admin: 04/04/19 16:04 Dose: Not Given Lorazepam (Ativan Injection -) 0.5 mg IVPUSH DAILY PRN PRN Reason: ANXIETY Last Admin: 04/04/19 21:22 Dose: 0.5 mg Metoprolol Tartrate (Lopressor Injection -) 5 mg IVPB Q6H [facility] Last Admin: 04/05/19 05:45 Dose: 5 mg Morphine Sulfate (Morphine Sulfate) 2 mg IVPUSH Q4H PRN PRN Reason: PAIN LEVEL 4 - 6 Last Admin: 04/04/19 23:33 Dose: 2 mg Morphine Sulfate (Morphine Sulfate) 4 mg IVPUSH Q4H PRN PRN Reason: PAIN LEVEL 6-10 Last Admin: 04/03/19 03:25 Dose: 4 mg Ondansetron HCl (Zofran Injection) 4 mg IVPUSH Q6H PRN PRN Reason: NAUSEA Last Admin: 04/04/19 21:22 Dose: 4 mg Pantoprazole Sodium (Protonix Iv) 40 mg IVPUSH DAILY [facility] Last Admin: 04/04/19 10:45 Dose: 40 mg ASSESSMENT/PLAN: Ms. White is a 58y/o female with anxiety and SVT who presents with sudden onset abdominal pain. Pt was found to have SBO. Hx of hysterectomy 4 years ago. #SBO likely 2/2 adhesions CTAP (04/02): SBO in lower abdominal pelvis KUB (04/04): air in colon/contrast in cecum. F/u repeat in am. GI/surg on board, cont conservative therapy. Will need exploration if not resolved in 5 days (Thursday) NG tube d/c'ed today. Continue NPO and IV LR @ 100m/hr overnight. If pt tolerates NGT out, will advance to full liquid diet tomorrow. Morphine 4mg q4h prn Zofran 40mg q6h IV prn Pt is clinically improving, slowly #Hepatic lesions CTAP: 2x 1.0 low-attenuation lesions, possibly cysts. Normal liver enzymes Recommend f/u as outpt #SVT, chronic Pt denies palpitations or symptoms Metoprolol 5mg Q6H IV with hold parameters Well controlled, pt was discharged by legal consultant for not having any episodes for 1 year #Anxiety Takes ativan 0.5mg po daily prn at home. Reports that a 30-day supply lasts her about 90 days. Will cont 0.5mg IV prn while NPO #FEN LR @ 100ML/HR Monitor electrolytes NPO for now. Full liquid diet tomorrow if tolerating NGT out #DVT ppx Heparin #GI Ppx Pantoprazole 40mg IV daily #Dispo Medical management for resolution of SBO Visit type - Emergency Visit Emergency Visit: No - New Patient This patient is new to me today: No - Critical Care Critical Care patient: No ATTENDING PHYSICIAN STATEMENT I saw and evaluated the patient. I reviewed the resident's note and discussed the case with the resident. I agree with the resident's findings and plan as documented. SUBJECTIVE: OBJECTIVE: ASSESSMENT AND PLAN:
[2019-04-05] MEDS: PANTOPRAZOLE SODIUM 40 MG VIAL IVPUSH SCH (10:41)
[2019-04-05] MEDS: LACTATED RINGERS SOLUTION 1,000 ML IV SCH (10:43)
--- NOTE | 2019-04-05 17:29 | PN ---
Teaching Attending Note Name of Resident: Jeanne Ferris ATTENDING PHYSICIAN STATEMENT I saw and evaluated the patient. I reviewed the resident's note and discussed the case with the resident. I agree with the resident's findings and plan as documented. SUBJECTIVE: Abdominal pain is improving. (+) flatus. No bowel movement. OBJECTIVE: Afebrile, Hemaodynamically Stable. NG tube removed this AM. Last Vital Signs Temp Pulse Resp BP Pulse Ox 98.6 F 76 18 153/86 95 04/05/19 13:44 04/05/19 13:44 04/05/19 13:44 04/05/19 13:44 04/05/19 09:00 HEENT: Atraumatic, Normocephalic. HEART: S1, S2, RRR LUNGS: Clear to auscultation ABDOMEN: Soft, mild generalized tenderness, bowel Sounds present. EXTREMITIES: No edema, no calf tenderness. Laboratory Results - last 24 hr 04/05/19 04/05/19 08:05 08:05 WBC 10.5 H RBC 4.10 Hgb 13.7 Hct 39.7 MCV 96.9 H MCH 33.4 MCHC 34.5 RDW 12.7 Plt Count 434 MPV 6.9 L Sodium 141 Potassium 3.5 Chloride 103 Carbon Dioxide 28 Anion Gap 10 BUN 19.1 H Creatinine 0.7 Est GFR (CKD-EPI)AfAm 109.91 Est GFR (CKD-EPI)NonAf 94.84 Random Glucose 80 Calcium 9.1 Current Medications Generic Name Dose Route Start Last Admin Trade Name Freq PRN Reason Stop Dose Admin Benzocaine/Menthol 1 each 04/02/19 15:34 Cepacol Lozenge - MM PRN PRN SORE THROAT Heparin Sodium (Porcine) 5,000 unit 04/02/19 14:00 04/05/19 14:22 Heparin - SQ 5,000 unit TID [facility] Administration Lactated Ringer's 1,000 mls @ 100 mls/hr 04/02/19 11:30 04/05/19 10:43 Lactated Ringers Solution IV 100 mls/hr ASDIR [facility] Administration Lorazepam 0.5 mg 04/04/19 15:04 04/04/19 21:22 Ativan Injection - IVPUSH 0.5 mg DAILY PRN Administration ANXIETY Metoprolol Tartrate 5 mg 04/02/19 11:30 04/05/19 10:59 Lopressor Injection - IVPB 5 mg Q6H [facility] Administration Morphine Sulfate 2 mg 04/02/19 11:19 04/04/19 23:33 Morphine Sulfate IVPUSH 2 mg Q4H PRN Administration PAIN LEVEL 4 - 6 Morphine Sulfate 4 mg 04/02/19 11:19 04/03/19 03:25 Morphine Sulfate IVPUSH 4 mg Q4H PRN Administration PAIN LEVEL 6-10 Ondansetron HCl 4 mg 04/02/19 11:25 04/04/19 21:22 Zofran Injection IVPUSH 4 mg Q6H PRN Administration NAUSEA Pantoprazole Sodium 40 mg 04/02/19 11:30 04/05/19 10:41 Protonix Iv IVPUSH 40 mg DAILY [facility] Administration Home Medications Medication Instructions Recorded Multivitamin [Multivitamins] 1 each PO DAILY tablet 08/10/13 Estradiol [Estradiol Transdermal 1 each TD WEEKLY 05/02/15 Patch] Metoprolol Succinate 25 mg PO DAILY 04/02/19 LORazepam [Ativan] 0.25 mg PO DAILY PRN 04/04/19 Medroxyprogesterone Acetate 2.5 mg PO DAILY 04/04/19 Zolpidem Tartrate [Ambien] 5 mg PO DAILY PRN 04/04/19 ASSESSMENT AND PLAN: 58 year old female with history of Anxiety, SVT, presented to the ED with abdominal pain, nausea and vomiting. 1. Small bowel obstruction - improving. NPO, s/p NG tube (removed) Continue IV fluids Advance to clear liquids if improves overnight. Morphine/Zofran PRN. 2. History of SVT - on BB 3. Anxiety - Continue Ativan as needed DVT Px - Heparin SQ GI Px - PPI
[2019-04-05] MEDS: MORPHINE SULFATE 2 MG/ML VIAL IVPUSH PRN (22:09)
[2019-04-05] MEDS: ONDANSETRON 4 MG/2 ML VIAL IVPUSH PRN (22:39)
[2019-04-06] MEDS: HEPARIN NA (PORCINE) 5,000 UNITS/ML 1ML VIAL SQ SCH ×2 (05:35→13:53)
[2019-04-06] MEDS: METOPROLOL TARTRATE 5 MG/5 ML VIAL IVPB SCH ×2 (05:35→13:35)
[2019-04-06 08:01] LABS: HEMATOCRIT 32.7 % (32.4-45.2); HEMOGLOBIN 11.3 GM/dL (10.7-15.3); MCH 33.3 pg (25.7-33.7); MCHC 34.5 g/dl (32.0-36.0); MEAN CELL VOLUME 96.5 fl (80-96); MEAN PLT VOLUME 7.2 fl (7.5-11.1); PLATELET COUNT 336 K/MM3 (134-434); RBC 3.39 M/mm3 (3.60-5.2); RDW 12.7 % (11.6-15.6)
[2019-04-06 08:30] LABS: ALBUMIN 2.7 g/dl (3.4-5.0); BILIRUBIN,TOTAL 0.6 mg/dL (0.2-1); BLOOD UREA NITROGEN 16.6 mg/dL (7-18); CALCIUM 8.2 mg/dL (8.5-10.1); CREATININE 0.6 mg/dL (0.55-1.3); POTASSIUM 3.5 mmol/L (3.5-5.1)
[2019-04-06] MEDS: PANTOPRAZOLE SODIUM 40 MG VIAL IVPUSH SCH (10:59)
--- NOTE | 2019-04-06 11:54 | PN ---
Progress Note (short form) - Note Progress Note: 58yo F h/o SBO, pt states that she had multiple loose BM last night. Pt states abd pain much improved. Denies n/v, fever, chills. Pt states that she is hungry and wants to eat. Last Vital Signs Temp Pulse Resp BP Pulse Ox 97.2 F L 70 18 129/62 97 04/06/19 09:50 04/06/19 09:50 04/06/19 09:50 04/06/19 09:50 04/06/19 09:00 CBC, BMP 04/06/19 06:30 04/06/19 06:30 PE Gen; A&OX3 Resp: breathing comfortably Abd; soft, nontender, mild distension Ext: no edema Problem List - Problems (1) Small bowel obstruction Assessment/Plan: Plan -will start on clears and adv pt as tolerated. -SBO appears to be resolved at this time, no need for acute surgical intervention. -please contact surgical team if any changes Case discussed with Dr. Apollo Cat who agrees. Code(s): K56.609 - UNSP INTESTNL OBST, UNSP TO PARTIAL VERSUS COMPLETE OBST
[2019-04-06] MEDS: LACTATED RINGERS SOLUTION 1,000 ML IV SCH (12:38)
[2019-04-06] MEDS ORDERED: metoPROLOL SUCCINATE 25 MG TAB.SR.24H (FP) PO SCH (13:45)
[2019-04-06 15:03] VITALS: BP 125/58; PULSE 63; TEMP 98.4
--- NOTE | 2019-04-06 17:00 | PN ---
Teaching Attending Note Name of Resident: Jeanne Ferris ATTENDING PHYSICIAN STATEMENT I saw and evaluated the patient. I reviewed the resident's note and discussed the case with the resident. I agree with the resident's findings and plan as documented. SUBJECTIVE: Abdominal pain much improved. Reports multiple bowel movements. No fever/chills. No nausea/vomiting. OBJECTIVE: Afebrile, Hemodynamically Stable. Last Vital Signs Temp Pulse Resp BP Pulse Ox 98.4 F 63 18 125/58 L 97 04/06/19 15:01 04/06/19 15:01 04/06/19 15:01 04/06/19 15:01 04/06/19 09:00 HEENT: Atraumatic, Normocephalic. HEART: S1, S2, RRR LUNGS: Clear to auscultation ABDOMEN: Soft, mild generalized tenderness improved, bowel Sounds present. EXTREMITIES: No edema, no calf tenderness. Laboratory Results - last 24 hr 04/06/19 04/06/19 06:30 06:30 WBC 6.0 RBC 3.39 L Hgb 11.3 Hct 32.7 D MCV 96.5 H MCH 33.3 MCHC 34.5 RDW 12.7 Plt Count 336 D MPV 7.2 L Sodium 142 Potassium 3.5 Chloride 109 H Carbon Dioxide 22 Anion Gap 11 BUN 16.6 Creatinine 0.6 Est GFR (CKD-EPI)AfAm 115.63 Est GFR (CKD-EPI)NonAf 99.77 Random Glucose 67 L Calcium 8.2 L Total Bilirubin 0.6 AST 14 L ALT 16 Alkaline Phosphatase 42 L Total Protein 5.0 L Albumin 2.7 L Current Medications Generic Name Dose Route Start Last Admin Trade Name Freq PRN Reason Stop Dose Admin Benzocaine/Menthol 1 each 04/02/19 15:34 Cepacol Lozenge - MM PRN PRN SORE THROAT Heparin Sodium (Porcine) 5,000 unit 04/02/19 14:00 04/06/19 13:53 Heparin - SQ Not Given TID [facility] Lactated Ringer's 1,000 mls @ 100 mls/hr 04/02/19 11:30 04/06/19 12:38 Lactated Ringers Solution IV 100 mls/hr ASDIR [facility] Administration Lorazepam 0.5 mg 04/04/19 15:04 04/04/19 21:22 Ativan Injection - IVPUSH 0.5 mg DAILY PRN Administration ANXIETY Metoprolol Succinate 25 mg 04/06/19 13:45 04/06/19 13:53 Toprol Xl - PO Not Given DAILY [facility] Morphine Sulfate 2 mg 04/02/19 11:19 04/05/19 22:09 Morphine Sulfate IVPUSH 2 mg Q4H PRN Administration PAIN LEVEL 4 - 6 Morphine Sulfate 4 mg 04/02/19 11:19 04/03/19 03:25 Morphine Sulfate IVPUSH 4 mg Q4H PRN Administration PAIN LEVEL 6-10 Ondansetron HCl 4 mg 04/02/19 11:25 04/05/19 22:39 Zofran Injection IVPUSH 4 mg Q6H PRN Administration NAUSEA Pantoprazole Sodium 40 mg 04/02/19 11:30 04/06/19 10:59 Protonix Iv IVPUSH 40 mg DAILY [facility] Administration Home Medications Medication Instructions Recorded Multivitamin [Multivitamins] 1 each PO DAILY tablet 08/10/13 Estradiol [Estradiol Transdermal 1 each TD WEEKLY 05/02/15 Patch] Metoprolol Succinate 25 mg PO DAILY 04/02/19 LORazepam [Ativan] 0.25 mg PO DAILY PRN 04/04/19 Medroxyprogesterone Acetate 2.5 mg PO DAILY 04/04/19 Zolpidem Tartrate [Ambien] 5 mg PO DAILY PRN 04/04/19 ASSESSMENT AND PLAN: 58 year old female with history of Anxiety, SVT, presented to the ED with abdominal pain, nausea and vomiting. 1. Small bowel obstruction - improved tolerating oral intake, BM + Not required analgesia or anti-emetic today. If tolerating regular diet by end of the day, can be discharged home. 2. History of SVT - on BB 3. Anxiety - Continue Ativan as needed DVT Px - Heparin SQ GI Px - PPI
--- NOTE | 2019-04-07 13:19 | DS ---
Physical Exam: SUBJECTIVE: Patient seen and examined. No acute events overnight. Pt has passed flatus and 7 loose stools. OBJECTIVE: Vital Signs Period Temp Pulse Resp BP Sys/Castillo Pulse Ox Last 24 Hr 98.4 F 58-63 18 111-125/58-74 PHYSICAL EXAM GENERAL: The patient is awake, alert, and fully oriented, in no acute distress. HEAD: Normal with no signs of trauma. EYES: PERRL, extraocular movements intact, sclera anicteric, conjunctiva clear. No ptosis. ENT: Ears normal, nares patent, oropharynx clear without exudates, moist mucous membranes. NECK: Trachea midline, full range of motion, supple. LUNGS: Breath sounds equal, clear to auscultation bilaterally, no wheezes, no crackles, no accessory muscle use. HEART: Regular rate and rhythm, S1, S2 without murmur, rub or gallop. ABDOMEN: Soft, nontender, nondistended, normoactive bowel sounds. no guarding, no rebound, no hepatosplenomegaly, no masses. EXTREMITIES: 2+ pulses, warm, well-perfused, no edema. NEUROLOGICAL: Cranial nerves II through XII grossly intact. Normal speech, gait not observed. PSYCH: Normal mood, normal affect. SKIN: Warm, dry, normal turgor, no rashes or lesions noted Laboratory Results - last 24 hr 04/05/19 04/05/19 08:05 08:05 WBC 10.5 H RBC 4.10 Hgb 13.7 Hct 39.7 MCV 96.9 H MCH 33.4 MCHC 34.5 RDW 12.7 Plt Count 434 MPV 6.9 L Sodium 141 Potassium 3.5 Chloride 103 Carbon Dioxide 28 Anion Gap 10 BUN 19.1 H Creatinine 0.7 Est GFR (CKD-EPI)AfAm 109.91 Est GFR (CKD-EPI)NonAf 94.84 Random Glucose 80 Calcium 9.1 HOSPITAL COURSE: Date of Admission:04/02/19 Ms. White is a 58y/o female with anxiety and SVT who presents with sudden onset abdominal pain. Pt was found to have SBO on CT imaging. GI and surgery were consulted and advised to proceed with conservative management. An NG tube was placed and pt was help NPO and given IVF LR. After 2 days, pt began experiencing flatus and abdominal pain improved. She was also monitored with daily KUBs. The NG tube was removed and her diet was slowly advanced. She began having bowel movements and abdominal pain subsided. Her symptoms have improved and was cleared by GI and surgery d/c. She is clinically stable to be discharged home and recommended to f/u with GI/surg in one week. Her CTAP also showed low-attenuation lesions, possibly cysts. These will be evaluated as outpt by GI. CTAP (04/02): SBO in lower abdominal pelvis. 2x low-attenuation lesions, possibly cysts. Date of Discharge: 04/07/19 Minutes to complete discharge: 45 Discharge Summary Problems reviewed: Yes Reason For Visit: SBO Condition: Improved - Instructions Diet, Activity, Other Instructions: You were admitted to the hospital for an obstruction in your bowels. You were evaluated by surgery. We put in a tube through your nose to decompress the bowels through which you improved. You are now passing gas, having bowel movements, tolerating food well, and are improved to be discharged home. Continue your home medications. Please follow up with your primary care provider in one week. Please also follow up with the surgeon, Dr. Truong, in one week. Return to the emergency department if you experience abdominal pain, nausea, vomiting, fevers, or any additional symptoms. Referrals: Yanna Johnson [Primary Care Provider] - Ric Truong MD [Staff Physician] - Disposition: HOME - Home Medications Comprehensive Discharge Medication List: Ambulatory Orders Multivitamin [Multivitamins] 1 each PO DAILY tablet 08/10/13 Estradiol [Estradiol Transdermal Patch] 1 each TD WEEKLY 05/02/15 Metoprolol Succinate 25 mg PO DAILY 04/02/19 LORazepam [Ativan] 0.25 mg PO DAILY PRN 04/04/19 Medroxyprogesterone Acetate 2.5 mg PO DAILY 04/04/19 Zolpidem Tartrate [Ambien] 5 mg PO DAILY PRN 04/04/19 This patient is new to me today: No Emergency Visit: No Critical Care patient: No Total Critical Care Time (in minutes): 45 Critical Care Statement: The care of this patient involved high complexity decision making to prevent further life threatening deterioration of the patient 's condition and/or to evaluate & treat vital organ system(s) failure or risk of failure. - Discharge Referral Referred to [facility] No ATTENDING PHYSICIAN STATEMENT I saw and evaluated the patient. I reviewed the resident's note and discussed the case with the resident. I agree with the resident's findings and plan as documented. SUBJECTIVE: OBJECTIVE: ASSESSMENT AND PLAN:
== END 2019-04-06 18:34 | disposition home or self-care (01) | DRG 389 ==
LOC: FER 02:36 → J6S 06:51
PROVIDERS: ADMIT Internal Medicine
DX: K56.609 Unspecified intestinal obstruction, unspecified as to partial versus complete obstruction (principal); I47.1 Supraventricular tachycardia; F41.9 Anxiety disorder, unspecified; D72.829 Elevated white blood cell count, unspecified
CPT/HCPCS: 36415; 71045-TC-FY; 74018-TC-FY; 74019-TC-FY; 74177-TC; 80048; 80053; 81003; 81015; 82150; 83690; 83735; 84100; 85025; 85027; 85610; 93005; 99283-25; J1644; J7030